=== PATIENT | female | born 1965 | race Caucasian/White ===

== ENCOUNTER 2016-10-17 07:44 | Emergency (ER) | payer BC ==
[~2016-10-17] VITALS: Ht 152.4 cm; Wt 68.0 kg
[2016-10-17 07:45] VITALS: BP 144/121; PULSE 122; RESP 22; TEMP 97.8; O2SAT 97
[2016-10-17] MEDS ORDERED: KETOROLAC TROMETHAMINE 60 MG/2 ML VIAL IM ONE (08:00)
[2016-10-17 08:33] LABS: BILIRUBIN,URINE NEGATIVE (NEGATIVE); BLOOD, URINE NEGATIVE (NEGATIVE); CLARITY/URINE CLEAR (CLEAR); COLOR,URINE YELLOW (YELLOW); GLUCOSE,URINE NEGATIVE (NEGATIVE); KETONES,URINE NEGATIVE (NEGATIVE); LEUKOCYTE ESTERASE ,URINE NEGATIVE (NEGATIVE); NITRITE, URINE NEGATIVE (NEGATIVE); PROTEIN URINE NEGATIVE (NEGATIVE); UROBILINOGEN,URINE 0.2 (0.2-1.0)
[2016-10-17 08:41] LABS: BASOPHILS % (AUTO) 0.6 % (0.0-2.0); EOSINOPHILS # (AUTO) 0.3 K/uL (0.0-0.4); EOSINOPHILS % (AUTO) 3.4 % (0.0-4.0); HEMATOCRIT 40.7 % (36-48); HEMOGLOBIN 13.8 g/dL (12.0-16.0); LYMPHOCYTES # (AUTO) 3.4 K/uL (1.0-5.5); LYMPHOCYTES % (AUTO) 42.9 % (20.5-51.5); MEAN CORPUSCULAR HEMOGLOBIN 30 pg (27-31); MEAN CORPUSCULAR HGB CONC 34 % (32-36); MEAN CORPUSCULAR VOLUME 89 fL (79.0-98.0); MONOCYTES # (AUTO) 0.5 K/uL (0.0-1.0); MONOCYTES % (AUTO) 6.7 % (1.7-9.3); NEUTROPHILS # (AUTO) 3.8 K/uL (1.8-7.7); NEUTROPHILS % (AUTO) 46.4 % (40.0-70.0); PLATELET COUNT (AUTO) 225 K/uL (130-430); RED BLOOD CELL COUNT(AUTO) 4.58 MIL/uL (4.2-6.2); RED CELL DISTRIBUTION WIDTH 13.3 % (9.0-15.0)
[2016-10-17 08:46] LABS: CALCIUM 9.3 mg/dL (8.4-11.0); CREATININE 0.83 mg/dL (0.55-1.30); POTASSIUM 4.2 mmol/L (3.5-5.1)
[2016-10-17 08:51] LABS: ALBUMIN 4.1 g/dL (3.4-4.8); TOTAL BILIRUBIN 0.6 mg/dL (0.0-1.0)
[2016-10-17 09:27] LABS: INR 0.9 (0.8-1.2); PROTHROMBIN TIME 10.2 SECS (9.5-12.5)
[2016-10-17 10:55] VITALS: BP 126/81; PULSE 82; RESP 16; TEMP 97.6; O2SAT 99
== END 2016-10-17 10:55 | disposition home or self-care (01) ==
LOC: SED 07:44
DX: R10.9 Unspecified abdominal pain (principal); R11.0 Nausea
CPT/HCPCS: 36415; 74176; 80053; 81003; 82150; 83690; 84703; 85025; 85610; 85730; 96372; 99285; J1885

== ENCOUNTER 2023-10-08 08:59 | Emergency (ER) | payer BC ==
[~2023-10-08] VITALS: Ht 152.4 cm; Wt 54.4 kg
[2023-10-08 09:00] VITALS: BP_SYST 121; PULSE 111; RESP 19; TEMP 98.2; O2SAT 98
[2023-10-08] MEDS: MORPHINE 4 MG INJ. 4 MG/ML VIAL IVP ONE (10:18)
[2023-10-08] MEDS: KETOROLAC TROMETHAMINE 30 MG VIAL IVP ONE (10:19)
[2023-10-08] MEDS: ONDANSETRON HCL 4 MG/2 ML VIAL IVP ONE (10:19)
[2023-10-08 10:40] VITALS: TEMP 98
[2023-10-08 11:22] LABS: BASOPHILS # (AUTO) 0.1 K/uL (0.0-0.2); EOSINOPHILS # (AUTO) 0.2 K/uL (0.0-0.4); EOSINOPHILS % (AUTO) 3.2 % (0.0-4.0); HEMATOCRIT 40.2 % (36-48); HEMOGLOBIN 13.8 g/dL (12.0-16.0); LYMPHOCYTES # (AUTO) 2.3 K/uL (1.0-5.5); MEAN CORPUSCULAR HEMOGLOBIN 32 pg (27-31); MEAN CORPUSCULAR HGB CONC 34 % (32-36); MEAN CORPUSCULAR VOLUME 92 fL (79.0-98.0); MONOCYTES # (AUTO) 0.4 K/uL (0.0-1.0); MONOCYTES % (AUTO) 6.2 % (1.7-9.3); NEUTROPHILS # (AUTO) 3.5 K/uL (1.8-7.7); NEUTROPHILS % (AUTO) 53.6 % (40.0-70.0); PLATELET COUNT (AUTO) 239 K/uL (130-430); RED BLOOD CELL COUNT(AUTO) 4.35 MIL/uL (4.2-6.2); RED CELL DISTRIBUTION WIDTH 13.1 % (9.0-15.0); WHITE BLOOD COUNT (AUTO) 6.5 K/uL (4.8-10.8)
[2023-10-08 11:33] LABS: CALCIUM 9.6 mg/dL (8.4-11.0); CREATININE 0.78 mg/dL (0.55-1.30); POTASSIUM 3.9 mmol/L (3.5-5.1)
[2023-10-08 11:37] LABS: ALBUMIN 3.7 g/dL (3.4-4.8); BILIRUBIN,DIRECT 0.1 mg/dL (0.0-0.3); TOTAL BILIRUBIN 0.6 mg/dL (0.0-1.0)
[2023-10-08] MEDS: DEXAMETHASONE SOD PHOSPHATE 10 MG/ML VIAL IVP ONE (12:23)
[2023-10-08] MEDS: HYDROmorphone 1 MG/ML INJ. CARTRIDGE IVP ONE (13:15)
[2023-10-08] MEDS ORDERED: MED4 PO (13:30)
[2023-10-08] MEDS ORDERED: OXYC-128 PO (13:30)
[2023-10-08 14:36] VITALS: BP_SYST 145; PULSE 80; O2SAT 97
== END 2023-10-08 14:03 | disposition home or self-care (01) ==
LOC: SED 08:59
DX: M47.896 Other spondylosis, lumbar region (principal); M51.26 Other intervertebral disc displacement, lumbar region; M25.551 Pain in right hip; Z79.899 Other long term (current) drug therapy
CPT/HCPCS: 99285; 72131; 96374; 96375; 80076; 80048; 85025; 36415; 72192; 76376; J1100; J1885; J2405; J1170; J2270